=== PATIENT | male | born 1995 | race African-American/Black ===

== ENCOUNTER 2018-11-07 11:35 | Emergency (ER) | payer OTHER ==
[~2018-11-07] VITALS: Ht 188 cm; Wt 79.4 kg
[2018-11-07] MEDS ORDERED: NAPROSYN500 MG PO (13:23)
[2018-11-07] MEDS ORDERED: AMOXICILLIN 50500 M1 PO (13:24)
[2018-11-07 13:45] VITALS: BP 132/81
== END 2018-11-07 14:46 | disposition home or self-care (01) ==
LOC: ER 11:35
PROVIDERS: Emergency Medicine
DX: J02.8 Acute pharyngitis due to other specified organisms (principal); B97.89 Other viral agents as the cause of diseases classified elsewhere

== ENCOUNTER 2018-12-26 01:04 | Emergency (ER) | payer OTHER ==
[~2018-12-26] VITALS: Ht 188 cm; Wt 78.5 kg
[~2018-12-26 01:04] MED LIST: AMOXICILLIN 50500 M1 PO; NAPROSYN500 MG PO
[2018-12-26] MEDS ORDERED: NOHOMEMEDICATIONS (01:10)
[2018-12-26 01:30] LABS: URINE BILIRUBIN NEGATIVE (Negative); URINE BLOOD NEGATIVE (Negative); URINE CLARITY CLOUDY; URINE COLOR YELLOW; URINE GLUCOSE-RANDOM* NEGATIVE (Negative); URINE KETONES NEGATIVE (Negative); URINE LEUKOCYTES-REFLEX NEGATIVE (Negative); URINE NITRITE-REFLEX NEGATIVE (Negative); URINE PROTEIN (DIPSTICK) NEGATIVE (Negative); URINE SPECIFIC GRAVITY 1.015 (1.005-1.035); URINE UROBILINOGEN 0.2 E.U./dl (0.2-1.0)
[2018-12-26 01:51] LABS: BASOPHILS 0.5 % (0.0-2.0); EOSINOPHILS 1.4 % (0.0-3.0); HEMATOCRIT 42.2 % (42.0-52.0); HEMOGLOBIN 13.8 gm/dL (14.0-18.0); LYMPHOCYTES 33.8 % (24.0-44.0); MCH 26.5 pg (26.0-34.0); MCHC 32.6 g/dL (28.0-37.0); MCV 81.2 fL (80.0-100.0); MONOCYTES 11.9 % (1.0-8.0); PLATELET COUNT 190 thou/uL (150-400); POLYS 52.4 % (36.0-66.0); RDW 14.2 % (10.5-14.5); WBC 7.6 thou/uL (4.0-11.0)
[2018-12-26 01:55] LABS: ANION GAP 5 mmol/L (7-16); BUN 9 mg/dL (7-18); CHLORIDE 104 mmol/L (98-107); CO2 31 mmol/L (21-32); GLUCOSE 106 mg/dL (74-106); POTASSIUM 3.5 mmol/L (3.5-5.1); SODIUM 140 mmol/L (136-145)
[2018-12-26 02:01] LABS: ALBUMIN 3.9 g/dL (3.4-5.0); DIRECT BILIRUBIN < 0.1 mg/dL (<0.1-0.3); LIPASE 139 U/L (73-393); SGOT 20 U/L (15-37); SGPT 45 U/L (30-65); TOTAL BILIRUBIN 0.3 mg/dL (<0.1-1.0)
[2018-12-26 03:45] VITALS: BP 122/71
[2018-12-26 16:08] LABS: HIV ANTIBODY Non Reactive (Non Reactive)
== END 2018-12-26 03:45 | disposition home or self-care (01) ==
LOC: ER 01:04
PROVIDERS: Emergency Medicine
DX: R10.10 Upper abdominal pain, unspecified (principal)

== ENCOUNTER 2020-07-03 21:56 | Emergency (ER) | payer OTHER ==
[~2020-07-03] VITALS: Ht 188 cm; Wt 91.6 kg
[~2020-07-03 21:56] MED LIST changes: +NOHOMEMEDICATIONS
[2020-07-03 22:04] VITALS: BP 154/67
[2020-07-03] MEDS ORDERED: DOXYCYCLINE 10100 MG PO (22:12)
== END 2020-07-03 22:41 | disposition home or self-care (01) ==
LOC: ER 21:56
DX: L02.211 Cutaneous abscess of abdominal wall (principal)